=== PATIENT | male | born 1940 | race Caucasian/White ===

== ENCOUNTER 2021-08-07 14:23 | Inpatient (IN) | payer MEDICARE, OTHER ==
[~2021-08-07] VITALS: Ht 167.6 cm; Wt 58.5 kg
[2021-08-07 15:22] LABS: HEMATOCRIT 36.2 % (36.7-47.1); MEAN CORPUSCULAR HEMOGLOBIN 26.1 uug (23.8-33.4); MEAN CORPUSCULAR VOLUME 79.5 fL (73.0-96.2); PLATELET COUNT (AUTO) 152 K/uL (152-348)
[2021-08-07 15:35] LABS: CARBON DIOXIDE 26 mmol/L (21-32); CHLORIDE 105 mmol/L (98-107); CREATININE 2.5 mg/dL (0.6-1.3); GLUCOSE 107 mg/dL (74-106); POTASSIUM 4.1 mmol/L (3.5-5.1); UREA NITROGEN, BLOOD 44 mg/dL (7-18)
[2021-08-07 15:37] LABS: *BILIRUBIN,URIN 1+ (NEGATIVE); *BLOOD, URINE 3+ (NEGATIVE); *CLARITY,URINE CLOUDY (CLEAR); *COLOR,URINE YELLOW (YELLOW); *KETONES,URINE TRACE (NEGATIVE); *UROBILINOGEN,URINE 0.2 E.U./dl (NORMAL); LEUKOCYTE ESTERASE ,URINE 3+ (NEGATIVE); NITRITE, URINE POSITIVE (NEGATIVE); PH,URINE >=9.0 (5.0-8.0); UGLUCOSE NEGATIVE (NEGATIVE)
[2021-08-07] MEDS ORDERED: IV NORMAL SALINE 1000 ML BAG IV ONE (15:45)
[2021-08-07] MEDS ORDERED: PIPERACILLIN SODIUM/TAZOBACTAM 3.375 G in IV DEXTROSE 5% 50 ML IV ONE (15:45)
[2021-08-07] MEDS ORDERED: PIPERACILLIN/TAZOBACTAM/D5W 50 ML IV ONE (15:47)
[2021-08-07 15:48] LABS: ALANINE AMINOTRANSFERASE 19 U/L (16-63); ALKALINE PHOSPHATASE 72 U/L (50-136); ASPARTATE AMINOTRANSFERASE 13 U/L (15-37); BILIRUBIN,DIRECT 0.3 mg/dL (0.0-0.2); TOTAL PROTEIN, SERUM 6.6 g/dL (6.4-8.2)
[2021-08-07 15:51] LABS: BACTERIA,URINE MANY /HPF (NONE SEEN); RBC,URINE 50-80 /HPF (0-3); WBC,URINE TNTC /HPF (0-3)
[2021-08-07 15:52] LABS: TRIPLE PHOSPHATE CRYSTAL,UR MANY /HPF (NONE SEEN)
[2021-08-07 15:53] LABS: MUCUS,URINE MODERATE /LPF (0-FEW)
--- NOTE | 2021-08-07 16:36 | NUR ---
diane garcia talking to urologist over the phone regarding the ct scan results Addendum: 08/07/21 at [address] JURADO
[2021-08-07] MEDS ORDERED: ACETAMINOPHEN 650 MG SUPP.RECT RC ONE ×2 (16:53→17:00)
[2021-08-07] MEDS ORDERED: ONDANSETRON 4 MG/2 ML VIAL IV PRN (17:15)
[2021-08-07] MEDS ORDERED: Z GUARD REMEDY PASTE 57 GM TUBE TOP PRN (17:15)
[2021-08-07] MEDS ORDERED: IV NORMAL SALINE 500 ML BAG IV ONE (17:15)
--- NOTE | 2021-08-07 17:23 | NUR ---
PICC LINE WILL BE HERE AR 2000 PER LINE UP MACHINE OPERATOR.
--- NOTE | 2021-08-07 17:30 | NUR ---
PT'S SIGNED THE PICCLINE CONSENT.
[2021-08-07] MEDS ORDERED: PIPERACILLIN/TAZO 2.25 G in IV DEXTROSE 5% 50 ML IV SCH (18:00)
[2021-08-07] MEDS ORDERED: ONDANSETRON 4 MG/2 ML VIAL ONE (18:19)
--- NOTE | 2021-08-07 19:05 | NUR ---
Received report from RUFUS Kumar. Pt is enroute to OR for placement of kidney stent. VSS.
[2021-08-07] MEDS ORDERED: IOHEXOL 300MG/ML 50 ML VIAL ONE (19:07)
--- NOTE | 2021-08-07 19:08 | NUR ---
OR CREW TRANSFERED PT TO OR.
[2021-08-07] MEDS ORDERED: ROCURONIUM BROMIDE 50 MG/5 ML VIAL ONE (19:32)
--- NOTE | 2021-08-07 19:55 | NUR ---
PICC line nurse called and was told that pt is currently in surgery. PICC nurse said that he might push the picc line placement til the AM. I said is it possible to wait for a few hours and then come and insert the picc line. The picc nurse said he would call me in a few hours and let me know.
--- NOTE | 2021-08-07 20:14 | NUR ---
AFTER RECOVERY, PATIENT WAS DIRECTLY TRANSFER TO CCU BY RECOVERY ROOM NURSE.
[2021-08-07] MEDS ORDERED: NEOSTIGMINE METHYLSULFATE 10 MG/10 ML VIAL IM ONE (20:40)
[2021-08-07] MEDS ORDERED: GLYCOPYRROLATE 0.2 MG/ML VIAL IJ ONE (20:40)
[2021-08-07] MEDS ORDERED: LIDOCAINE-MPF 2% 5 ML VIAL IJ ONE (20:40)
[2021-08-07] MEDS ORDERED: ETOMIDATE 20 MG/10 ML VIAL IV ONE (20:40)
[2021-08-07] MEDS ORDERED: METOCLOPRAMIDE HCL 10 MG/2 ML VIAL IV ONE (20:40)
[2021-08-07] MEDS ORDERED: ONDANSETRON 4 MG/2 ML VIAL IV ONE (20:40)
[2021-08-07] MEDS ORDERED: SUCCINYLCHOLINE CHLORIDE 200 MG/10 ML VIAL IV ONE (20:40)
[2021-08-07] MEDS ORDERED: SEVOFLURANE 250 ML BOTTLE IH ONE (20:40)
[2021-08-07] MEDS ORDERED: DEXAMETHASONE SOD PHOSPHATE 4 MG INJ IV ONE (20:40)
[2021-08-07] MEDS ORDERED: DEXTROSE 5% IV ONE (20:45)
[2021-08-07] MEDS ORDERED: GENTAMICIN SULFATE IV ONE (20:45)
[2021-08-07] MEDS ORDERED: MEPERIDINE 25 MG/1 ML DISP.SYRIN ONE (20:53)
[2021-08-07] MEDS ORDERED: FENTANYL CITRATE 100 MCG/2 ML AMPUL ONE (21:12)
[2021-08-07] MEDS ORDERED: PIPERACILLIN SODIUM/TAZOBACTAM 4.5 G in IV DEXTROSE 5% 50 ML IV SCH (22:00)
[2021-08-07 22:15] VITALS: BP 84/45
--- NOTE | 2021-08-07 22:15 | NUR ---
gentamicin iv given in surgery per report from shaye from or
--- NOTE | 2021-08-07 22:15 | NUR ---
received patient and report from surekha in surgery , patient is lethargic , no spontaneous eye opening , contracted upper and lower extremities ,, on 6 l simple mask , patient has ns running at 75 ml , pacing at 93 , 97 oxygen saturation , temp 99.9 , bp 84 / 45 witt catheter is draining red orange , iiv 20 ga left and rightarm , familt at bedside , tylenol suppository given , belongings sent with the family ( home medications )
[2021-08-07 22:30] VITALS: BP 86/47
--- NOTE | 2021-08-07 23:00 | NUR ---
GENTAMICIN MEDICATION WAS TRIED TO ENTER IN THE SYSTEM , IT WOULDN'T LET US , SAYS PROHIBITED FROM THIS LOCATION , SCHOOL AGE LEAD TEACHER AND OUT SIDE PHARMAMCY WERE NOTOFIED OF THE PROBLEM , WAS TOLD TO WAIT FOR THE PHARMACIST AT 7AM AWARE
[2021-08-07] MEDS: ACETAMINOPHEN 650 MG SUPP.RECT RC PRN (23:18)
[2021-08-07] MEDS: IV NS 1000 ML 1,000 ML IV PRN (23:20)
--- NOTE | 2021-08-07 23:47 | NUR ---
DR HUGHES IS NOTIFIED OF TEMP > 101 , BLOOD PRESSURE WAS SUSUTAINING ON THE 80 "S AFTER PATIENT WAS RECEIVED FROM OR AND CURRENT TROPONIN RESULTS , NO ORDERS RECEIVED
[2021-08-08] VITALS (48 sets, daily range): BP systolic 83–155; BP diastolic 43–122
--- NOTE | 2021-08-08 | NUR ---
COOLING BLANKET IS APPLIED FOR COOLING MEASURES AND [employer] BPM ARCHITECT BATH IS DONE
[2021-08-08] MEDS ORDERED: PIPERACILLIN SODIUM/TAZO 3.375 GM VIAL ONE (01:17)
[2021-08-08] MEDS ORDERED: PIPERACILLIN SODIUM/TAZOBACTAM 3.375 G in IV DEXTROSE 5% 100 ML IV SCH (02:00)
--- NOTE | 2021-08-08 03:30 | NUR ---
maikol duran , was called to notify of low blood pressure
--- NOTE | 2021-08-08 03:39 | NUR ---
maikol duran called back and notified of current status of the patient , received order to start levophed
[2021-08-08] MEDS ORDERED: NOREPINEPHRINE BITARTRATE 8 MG in IV NORMAL SALINE 242 ML IV PRN (03:45)
[2021-08-08] MEDS ORDERED: NOREPINEPHRINE BITARTRATE 4 MG/4 ML VIAL IV ONE (03:56)
--- NOTE | 2021-08-08 04:10 | NUR ---
levophed started 0.1 mcg
[2021-08-08 05:13] LABS: HEMATOCRIT 31.5 % (36.7-47.1); MEAN CORPUSCULAR HEMOGLOBIN 26.1 uug (23.8-33.4); MEAN CORPUSCULAR VOLUME 79.7 fL (73.0-96.2); PLATELET COUNT (AUTO) 86 K/uL (152-348)
[2021-08-08 05:24] LABS: ALANINE AMINOTRANSFERASE 20 U/L (16-63); ALKALINE PHOSPHATASE 68 U/L (50-136); ASPARTATE AMINOTRANSFERASE 24 U/L (15-37); BILIRUBIN,TOTAL 1.2 mg/dL (0.2-1.0); CARBON DIOXIDE 21 mmol/L (21-32); CHLORIDE 110 mmol/L (98-107); CREATININE 2.6 mg/dL (0.6-1.3); GLUCOSE 71 mg/dL (74-106); MAGNESIUM 2.1 mg/dL (1.8-2.4); PHOSPHOROUS 3.1 mg/dL (2.5-4.9); POTASSIUM 3.6 mmol/L (3.5-5.1); TOTAL PROTEIN, SERUM 5.5 g/dL (6.4-8.2); UREA NITROGEN, BLOOD 51 mg/dL (7-18)
[2021-08-08 06:01] LABS: BAND % (MANUAL) 29 % (0-10); LYMPHOCYTES % (MANUAL) 1 % (20-40); METAMYELOCYTES % 4 % (0-1); MONOCYTES % (MANUAL) 4 % (2-10); NEUTROPHILS % (MANUAL) 62 % (42-75)
[2021-08-08] MEDS: IV NS 1000 ML 1,000 ML IV PRN ×2 (06:27→21:40)
--- NOTE | 2021-08-08 06:55 | NUR ---
patient is getting more awake , combative ,moving bilateral hands and pulling oxygen and ivs,
[2021-08-08] MEDS ORDERED: GENTAMICIN SULFATE INJ 80 MG in IV DEXTROSE 5% 50 ML IV SCH (08:00)
[2021-08-08] MEDS ORDERED: VANCOMYCIN IV 750 MG in IV DEXTROSE 5% 250 ML IV SCH (09:00)
[2021-08-08] MEDS ORDERED: PIPERACILLIN/TAZO 2.25 G in IV DEXTROSE 5% 50 ML IV SCH (10:00)
[2021-08-08] MEDS ORDERED: ALBUTEROL SULFATE 2.5 MG/3 ML NEBU NEB PRN (10:15)
[2021-08-08] MEDS: Z GUARD REMEDY PASTE 57 GM TUBE TOP SCH ×2 (11:18→20:45)
[2021-08-08] MEDS ORDERED: MEROPENEM 500 MG in IV NORMAL SALINE 50 ML IV ONE (12:00)
--- NOTE | 2021-08-08 17:01 | NUR ---
Spoke to Dr. Ricci regarding blood cultures growing gram negative rods in all 4 bottles. iNna CANDELARIA made changes to IV antibiotics. order one more set of blood cultures now. Addendum: 08/08/21 at 1709 by MELCHOR PERALTA RN Dr. Garcaí
[2021-08-08] MEDS ORDERED: PANT40TA2 PO (19:42)
[2021-08-08] MEDS ORDERED: FAMO20TA8 PO (19:43)
[2021-08-08] MEDS ORDERED: DONE10TA44 PO (19:44)
[2021-08-08] MEDS ORDERED: ATOR40TA PO (19:45)
--- NOTE | 2021-08-08 20:00 | NUR ---
Family visiting. Plan of care discussed with patient's and son Curt. Both requesting to talk to MD. Advised that I will leave a note for MDs to talk to them in am. Brian Mckay MATERIALS DIRECTOR here; midline insertion order received. Chain Saw Mechanic Irais made aware.
--- NOTE | 2021-08-08 20:15 | NUR ---
Pharmacy Neda called re: patient's home meds. As per she will bring med list in am.
--- NOTE | 2021-08-08 21:00 | NUR ---
ANNY midline successfully inserted by Roberto ARRINGTON
[2021-08-09] VITALS (25 sets, daily range): BP systolic 89–146; BP diastolic 47–94
[2021-08-09] MEDS ORDERED: MEROPENEM 500 MG in IV NORMAL SALINE 50 ML IV SCH
--- NOTE | 2021-08-09 | NUR ---
Bath given; patient gets moderately agitated with care, holding mittens up as a boxer and tries to hit RN. Reoriented and advised appropriately. Still non verbal.
[2021-08-09 05:34] LABS: HEMATOCRIT 31.8 % (36.7-47.1); MEAN CORPUSCULAR HEMOGLOBIN 25.7 uug (23.8-33.4); MEAN CORPUSCULAR VOLUME 78.8 fL (73.0-96.2); PLATELET COUNT (AUTO) 55 K/uL (152-348)
[2021-08-09 05:41] LABS: CARBON DIOXIDE 22 mmol/L (21-32); CHLORIDE 113 mmol/L (98-107); CREATININE 1.7 mg/dL (0.6-1.3); GLUCOSE 70 mg/dL (74-106); POTASSIUM 4.2 mmol/L (3.5-5.1); UREA NITROGEN, BLOOD 51 mg/dL (7-18)
[2021-08-09 05:43] LABS: MAGNESIUM 2.4 mg/dL (1.8-2.4); PHOSPHOROUS 3.8 mg/dL (2.5-4.9)
--- NOTE | 2021-08-09 06:33 | NUR ---
VS stable all night; no acute distress. Output 600 ml pinkish to tea colored urine with sediments.
--- NOTE | 2021-08-09 08:00 | NUR ---
received change of shift report on pt. pt on 2L NC saturating at 100%, no signs of distress, no signs of pain, pt NPO at this time. nonverbal at baseline, NSR with PAC, voiding via witt, brought pt home medications, logged and dropped off at pharmacy. .
[2021-08-09] MEDS: Z GUARD REMEDY PASTE 57 GM TUBE TOP SCH ×2 (08:58→22:10)
[2021-08-09] MEDS: IV NS 1000 ML 1,000 ML IV PRN ×3 (10:36→23:36)
[2021-08-09] MEDS: ACETAMINOPHEN 650 MG SUPP.RECT RC PRN ×2 (10:39→22:11)
[2021-08-09] MEDS ORDERED: MEROPENEM 1 G in IV NORMAL SALINE 100 ML IV SCH (10:45)
[2021-08-09 11:00] LABS: ABG BASE EXCESS -4.5 mmol/L; ABG HCO3 18.4 mmol/L; ABG PCO2 27.1 mmHg (35.0-45.0); ABG PO2 80.2 mmHg (75.0-100.0); ABG SITE LEFT RADIAL; ABG TOTAL HEMOGLOBIN 10.7 G/dL (13.5-18.0); COHb 0.1 % (0.5-1.5); MetHb 0.3 % (0.0-1.5); O2Hb 95.6 % (94.0-97.0); VENT MODE Nasal Cannula
[2021-08-09] MEDS: MEROPENEM 1 G in IV NORMAL SALINE 100 ML IV SCH ×2 (11:14→23:34)
--- NOTE | 2021-08-09 13:00 | NUR ---
NG tube placed, will follow up with xray
--- NOTE | 2021-08-09 13:32 | NUR ---
pt seen by Dr. Condon, orders for NG tube placement. pt is drowsy and not alert enough to swallow.
--- NOTE | 2021-08-09 16:00 | NUR ---
Jevity 1.2 to start at 10ml for a goal rate of 55ml/hr x22hr. Pt on room air saturating at 100%, no signs of distress, no reports of pain.
[2021-08-09] MEDS ORDERED: PHENOL/SODIUM PHENOLATE SPRAY 177 ML BOTTLE MM PRN (17:30)
[2021-08-09] MEDS ORDERED: POLYVINYL ALCOHOL OPHT DROPS 15 ML BOTTLE LEFTEYE PRN (18:00)
[2021-08-09] MEDS: ACETAMINOPHEN 325 MG TABLET PO PRN (18:06)
--- NOTE | 2021-08-09 19:10 | NUR ---
received [facility] , on room air , ngt jevity 1.2 at 10 ml ,placement checeked and verified and no residual noted , pacing , at 82 , witt draining orange straw color , temp of 100 . 3 and iv intact ns 75 ml ,
--- NOTE | 2021-08-09 22:44 | NUR ---
dr garcia informed of changed of condition , heart rate is sustaining to > 140 "s
[2021-08-09] MEDS ORDERED: AMIODARONE HCL IV 150 MG in IV DEXTROSE 5% 100 ML IV ONE (22:45)
--- NOTE | 2021-08-09 22:46 | NUR ---
patient converted to afib with rvr, received order to start amiodarone
[2021-08-09] MEDS ORDERED: AMIODARONE HCL 150 MG/3 ML VIAL IV ONE ×3 (23:06→23:13)
[2021-08-09] MEDS: AMIODARONE HCL IV 450 MG in IV DEXTROSE 5% 250 ML IV PRN (23:24)
[2021-08-10] VITALS (23 sets, daily range): BP systolic 116–163; BP diastolic 50–86
[2021-08-10] MEDS ORDERED: AMIODARONE HCL 150 MG/3 ML VIAL IV ONE (05:00)
[2021-08-10 05:33] LABS: HEMATOCRIT 30.9 % (36.7-47.1); MEAN CORPUSCULAR HEMOGLOBIN 25.7 uug (23.8-33.4); MEAN CORPUSCULAR VOLUME 79.8 fL (73.0-96.2); PLATELET COUNT (AUTO) 64 K/uL (152-348)
[2021-08-10 05:47] LABS: CARBON DIOXIDE 24 mmol/L (21-32); CHLORIDE 115 mmol/L (98-107); CREATININE 1.6 mg/dL (0.6-1.3); GLUCOSE 126 mg/dL (74-106); MAGNESIUM 2.3 mg/dL (1.8-2.4); PHOSPHOROUS 2.7 mg/dL (2.5-4.9); POTASSIUM 3.8 mmol/L (3.5-5.1); UREA NITROGEN, BLOOD 47 mg/dL (7-18)
[2021-08-10] MEDS: AMIODARONE HCL IV 450 MG in IV DEXTROSE 5% 250 ML IV PRN (06:04)
--- NOTE | 2021-08-10 07:00 | NUR ---
dr basurto is here at bedside
[2021-08-10] MEDS: Z GUARD REMEDY PASTE 57 GM TUBE TOP SCH ×2 (08:41→20:06)
--- NOTE | 2021-08-10 10:14 | NUR ---
patient had swallow eval done this morning per dr. garcia's order. patient did not pass. familly insists on feeding even with high risk. therapist informed primary doctor and force adjustment supervisor and informed the family that he will aspirate if he gets anything orally. speech therapist will reevaluate
[2021-08-10] MEDS: MEROPENEM 1 G in IV NORMAL SALINE 100 ML IV SCH (11:34)
[2021-08-10] MEDS ORDERED: CEFTRIAXONE 2 G VIAL IM SCH (12:45)
[2021-08-10] MEDS: ACETAMINOPHEN 325 MG TABLET PO PRN ×2 (14:52→19:58)
[2021-08-10] MEDS: CEFTRIAXONE 2 G in IV DEXTROSE 5% 100 ML IV SCH (17:29)
--- NOTE | 2021-08-10 19:30 | NUR ---
Report received. Patient lethargic, easily agitated when stimulated. Mumbles, no appropriate verbal responses to questions. Extremities rigid. NAD noted. clinical research monitor: SR with PACs. On continuous Amiodarone drip per protocol. Assessment done; see flow complete data. Addendum: 08/11/21 at 0400 by AMADOU MEDELLIN RN Amended: Links added. Addendum: 08/11/21 at 0404 by AMADOU MEDELLIN RN Amended: Links added.
--- NOTE | 2021-08-10 20:00 | NUR ---
Incontinent of soft brown stools. Cleaned; skin care provided. With Mepilex to both hips and sacral area for protection. No skin breakdown. Hydrogel and Z guard ointment applied. Turned and repositioned. HOB elevated above 30 degrees. Family visits; plan of care discussed. Addendum: 08/11/21 at 0404 by AMADOU MEDELLIN RN Amended: Links added.
[2021-08-11] VITALS (17 sets, daily range): BP systolic 101–167; BP diastolic 59–87
[2021-08-11] MEDS: ACETAMINOPHEN 325 MG TABLET PO PRN ×3 (03:24→17:40)
[2021-08-11 06:13] LABS: HEMATOCRIT 30.7 % (36.7-47.1); MEAN CORPUSCULAR HEMOGLOBIN 26.4 uug (23.8-33.4); MEAN CORPUSCULAR VOLUME 78.7 fL (73.0-96.2); PLATELET COUNT (AUTO) 51 K/uL (152-348)
[2021-08-11 06:14] LABS: CARBON DIOXIDE 25 mmol/L (21-32); CHLORIDE 112 mmol/L (98-107); CREATININE 1.4 mg/dL (0.6-1.3); GLUCOSE 161 mg/dL (74-106); MAGNESIUM 1.8 mg/dL (1.8-2.4); PHOSPHOROUS 2.2 mg/dL (2.5-4.9); POTASSIUM 3.2 mmol/L (3.5-5.1); UREA NITROGEN, BLOOD 35 mg/dL (7-18)
--- NOTE | 2021-08-11 06:51 | NUR ---
Stable all night. EKG: monitor SR with PACs. Tolerating NGT feedings well at 55 ml/H. Still mumbles, no appropriate verbal responses. Doesn't follow commands. Urine output 700 ml x 12H; coty, cloudy. No hematuria. Addendum: 08/11/21 at 0658 by AMADOU MEDELLIN RN Amended: Links added.
[2021-08-11] MEDS: Z GUARD REMEDY PASTE 57 GM TUBE TOP SCH ×2 (08:07→21:55)
[2021-08-11] MEDS: AMIODARONE HCL 200 MG TABLET PO SCH ×2 (08:07→21:54)
[2021-08-11] MEDS ORDERED: POTASSIUM CHLORIDE 20 MEQ POWDER PACKET GT ONE (09:15)
[2021-08-11] MEDS ORDERED: NEUTRA PHOS PACKET GT ONE (15:15)
[2021-08-11] MEDS ORDERED: IV D5W 1000ML 1,000 ML IV ONE (15:45)
--- NOTE | 2021-08-11 15:50 | NUR ---
report given to Jillian. patient to transfer to room 307. family (son) at bedside informed and no patient belongings to be transferred. Dr Dean ordered sodium phos ngt given prior to transfer and started d5w at 50ml/hr as ordered. Dr. dean will dc kphos IV.
--- NOTE | 2021-08-11 16:15 | NUR ---
received from cc per bed, lethargic, doesn't verbally responds, just moans at times and moves right upper extremity, left arm flaccid, bilateral mittens on, head of bed elevated, NGT on right nares- tube fdg Jevity 1.2 infusing at 55ml/hr, no residual noted, on room air, sat at 96% tele SR 70's, son at bedside
[2021-08-11] MEDS ORDERED: POTASSIUM PHOSPHATE MM 15 MMOL in IV NORMAL SALINE 250 ML IV ONE (17:00)
--- NOTE | 2021-08-11 17:40 | NUR ---
temp-100 Tylenol 650mg via ngt given, cooling measures done, oral care done, family at bedside
[2021-08-11] MEDS: CEFTRIAXONE 2 G in IV DEXTROSE 5% 100 ML IV SCH (17:41)
--- NOTE | 2021-08-11 18:50 | NUR ---
temp rechecked 98.5, repositioned for comfort, all needs attended and met
--- NOTE | 2021-08-11 19:54 | NUR ---
patient received with untied mittens to the right hand/with family at bedside.head of bed elevated 45 degrees.
--- NOTE | 2021-08-11 20:07 | NUR ---
lab called for the blood culture gram stain positive for gram negative rods. will inform physician Addendum: 08/11/21 at 2015 by [facility]RY [facility] RN2 RN Dr Roseanna fountain for the critical result with rr 30/ afebrile. message left ,awaiting response
--- NOTE | 2021-08-11 20:41 | NUR ---
Dr Condon called and informed about the critical result and patient tachypneic with rr of 30/min. with orders and carried out
--- NOTE | 2021-08-11 22:51 | NUR ---
Dr Roseanna fountain as the chest xray and abg result in. message ;left awaiting response Addendum: 08/11/21 at 2253 by [facility]RY [facility] RN2 RN Dr Martinez called back with no new orders given.
[2021-08-12] VITALS (8 sets, daily range): BP systolic 131–177; BP diastolic 62–81
--- NOTE | 2021-08-12 01:07 | NUR ---
rr 36/min. Dr Condon is aware.asked in patient can be given anything for pain .with no further orders made
--- NOTE | 2021-08-12 03:09 | NUR ---
patient of right hand untied mitshans as he is unable to follow instructions and with possibility to pull on the ngt and line.
[2021-08-12] MEDS: JEVITY 1.2 1000 ML LIQUID GT PRN ×2 (03:59→23:38)
[2021-08-12 06:38] LABS: CREATININE 1.1 mg/dL (0.6-1.3); PHOSPHOROUS 3.2 mg/dL (2.5-4.9); POTASSIUM 3.6 mmol/L (3.5-5.1)
[2021-08-12 08:16] LABS: ABG BASE EXCESS -0.3 mmol/L; ABG HCO3 21.3 mmol/L; ABG PCO2 25.6 mmHg (35.0-45.0); ABG PH 7.537 (7.350-7.450); ABG PO2 84.2 mmHg (75.0-100.0); ABG SITE RIGHT RADIAL; ABG TOTAL HEMOGLOBIN 10.9 G/dL (13.5-18.0); COHb 0.2 % (0.5-1.5); MetHb 0.2 % (0.0-1.5); O2Hb 96.3 % (94.0-97.0); VENT MODE ROOM AIR
[2021-08-12] MEDS: AMIODARONE HCL 200 MG TABLET PO SCH ×2 (08:22→21:08)
[2021-08-12] MEDS: Z GUARD REMEDY PASTE 57 GM TUBE TOP SCH ×2 (08:23→21:07)
--- NOTE | 2021-08-12 08:30 | NUR ---
received in bed sleeping but arousable. non verbal. ngt on right nare intact and patent no n/v noted. abd non distended. pt briefly opens his eyes when called his name. iv madelin midline intact hydration ongoing. witt draining yellow urine no hematuria/sediments. sr on tele hr 80s. still tachypneic rr 26 o2 sat 94-95%. dr. dietz rounding at this time and aware. safety measures on. cont to monitor.
--- NOTE | 2021-08-12 09:20 | NUR ---
see and examined by dr. garcia and update given. at bedside.
[2021-08-12] MEDS: ACETAMINOPHEN 325 MG TABLET PO PRN (09:27)
[2021-08-12] MEDS: CEFTRIAXONE 2 G in IV DEXTROSE 5% 100 ML IV SCH (17:19)
--- NOTE | 2021-08-12 18:40 | NUR ---
awake and responsive. no acute distress. afebrile. still tachypneic rr 28. dr. garcia aware. o2 sat 97%. ngt tolerated no n/v/d noted. sr on tele hr 80s. iv intact. on iv rocephin no adverse/allergic rxn noted. safety precautions in place. needs attended to. call light in reach. family at bedside. kept comfortable.
--- NOTE | 2021-08-12 20:17 | NUR ---
Received with at bedside talking to the patient who is responding by gestures. no signs of distress but still tachypneic with rr 36/min but no shortness of breath , Dr Condon is aware. head of bed elevatd 35 degrees.
--- NOTE | 2021-08-12 21:13 | NUR ---
went home .untied mittens right hand reapplied as the patient is quite but is unable to follow instructions and will have the danger of pulling the ngt, for feeding
--- NOTE | 2021-08-12 22:14 | NUR ---
Doctor Woody the physician radiation / chemistry technician informed that the patient is always tachypneic and moans when moved. asked if he can be given something for pain as he is always uncomfortable and grimacing ,with orders and carried out. witt catheter noted to be leaking and informed and with ordes okay to remove the witt catheter and reinsert a new one. the untied mitten to the right hand is applied foir safety and with orders okay to renew the order.
[2021-08-12] MEDS ORDERED: HYDROCODONE/APAP 5-325MG TABLET PO ONE (22:15)
--- NOTE | 2021-08-12 23:19 | NUR ---
will continue to monitor for pain. norco dose held as further observation .
[2021-08-13] VITALS (7 sets, daily range): BP systolic 100–147; BP diastolic 53–81
--- NOTE | 2021-08-13 00:23 | NUR ---
witt catheter discontinued as noted leaking . witt catheter sammarinese 16 inserted but leaking ,sammarinese 18 witt catheter inserted aseptically and not urine with sediments, no further leaking noted, norco 5 mg via ngt given as patient grimacing and moaning when moved and touched, placed on oxygen at 2 liters as saturation to 92 on room air,monitored closely
--- NOTE | 2021-08-13 01:20 | NUR ---
Dr Storm called and okayed for the patient to placed on oxygen at 2 liters nasal cannula. and witt catheter macedonian 18 was inserted as the macedonian 16 still was leakinh
--- NOTE | 2021-08-13 02:42 | NUR ---
suctioning of secretions done obtained cream colored thick secretions, head of bed elevated 45 degrees.
[2021-08-13 06:37] LABS: HEMATOCRIT 30.3 % (36.7-47.1); MEAN CORPUSCULAR VOLUME 78.8 fL (73.0-96.2); PLATELET COUNT (AUTO) 72 K/uL (152-348)
[2021-08-13 06:46] LABS: BILIRUBIN,TOTAL 0.5 mg/dL (0.2-1.0); CREATININE 1.2 mg/dL (0.6-1.3); MAGNESIUM 1.6 mg/dL (1.8-2.4); PHOSPHOROUS 4.2 mg/dL (2.5-4.9); TOTAL PROTEIN, SERUM 5.5 g/dL (6.4-8.2)
--- NOTE | 2021-08-13 08:19 | NUR ---
received resting but easily arousable. makes garbled sounds. no sob/ facial grimacing noted. hob elevated 45 degress. ngt feeding on as ordered. madelin iv intact and patent. with right hand mitten d/t risk of pulling out lines. pt unable to follow instructions. still tachypneic rr 30, o2 sat 97%. fc draining yellow urine no hematuria or sediments noted. safety measures kept. call light in reach. will monitor.
--- NOTE | 2021-08-13 08:52 | NUR ---
sr on tele hr 87. dr. garcia and speech therapist for [facility] are in the room with family.
--- NOTE | 2021-08-13 09:09 | NUR ---
dr. garcia with order to remove ngt noted and carried. speech therapist in the room with family.
[2021-08-13] MEDS: AMIODARONE HCL 200 MG TABLET PO SCH ×2 (09:12→20:45)
[2021-08-13] MEDS: Z GUARD REMEDY PASTE 57 GM TUBE TOP SCH ×2 (09:12→20:45)
--- NOTE | 2021-08-13 09:18 | NUR ---
ngt removed as ordered intact. pt tolerated procedure minimal facial grimacing. alert and responsive, tolerating apple sauce fed by speech therapist and . no coughing noted. hob kept elevated. will monitor.
[2021-08-13] MEDS: MAGNESIUM SULFATE/D5W 100 ML IV SCH ×2 (09:44→10:54)
[2021-08-13] MEDS ORDERED: CARB1TAB40 PO (12:14)
[2021-08-13] MEDS ORDERED: MEMA10TA PO (12:14)
[2021-08-13] MEDS ORDERED: CARB1TAB21 PO (12:14)
--- NOTE | 2021-08-13 12:24 | NUR ---
home meds brought by family entered in system and endorsed to [facility] at pharmacy. aware.
[2021-08-13] MEDS: CEFTRIAXONE 2 G in IV DEXTROSE 5% 100 ML IV SCH (17:39)
--- NOTE | 2021-08-13 18:43 | NUR ---
pt resting no acute distress. hob kept elevated. ate more during dinner. strict aspiration precautions observed at all times. no facial grimacing or sob. changed and repositioned prn. kept comfortable. safety precautions maintained. family at bedside.
[2021-08-14 04:00] VITALS: BP 124/58
[2021-08-14 06:37] LABS: CREATININE 1.1 mg/dL (0.6-1.3); MAGNESIUM 2.2 mg/dL (1.8-2.4); POTASSIUM 3.9 mmol/L (3.5-5.1)
[2021-08-14 09:53] LABS: THYROID STIMULATING HORMONE 4.128 mIU/mL (0.358-3.740)
[2021-08-14] MEDS: AMIODARONE HCL 200 MG TABLET PO SCH ×2 (09:54→20:45)
[2021-08-14] MEDS: Z GUARD REMEDY PASTE 57 GM TUBE TOP SCH ×2 (09:54→22:25)
[2021-08-14] MEDS: CARBIDOPA/LEVODOPA CR 50-200MG TABLET.SA PO SCH (10:32)
[2021-08-14 12:02] VITALS: BP 119/65
[2021-08-14] MEDS: CARBIDOPA/LEVODOPA 25-100MG TABLET PO SCH ×3 (12:18→20:46)
[2021-08-14 15:41] LABS: *BILIRUBIN,URIN NEGATIVE (NEGATIVE); *BLOOD, URINE 3+ (NEGATIVE); *CLARITY,URINE SLIGHTLY CLOUDY (CLEAR); *COLOR,URINE YELLOW (YELLOW); *KETONES,URINE NEGATIVE (NEGATIVE); *UROBILINOGEN,URINE 0.2 E.U./dl (NORMAL); LEUKOCYTE ESTERASE ,URINE 2+ (NEGATIVE); NITRITE, URINE NEGATIVE (NEGATIVE); PH,URINE 7.5 (5.0-8.0); UGLUCOSE NEGATIVE (NEGATIVE)
[2021-08-14 16:03] VITALS: BP 132/68
[2021-08-14] MEDS: MEMANTINE HCL 10 MG TABLET PO SCH (17:24)
[2021-08-14] MEDS: CEFTRIAXONE 2 G in IV DEXTROSE 5% 100 ML IV SCH (18:17)
[2021-08-14 18:22] LABS: RBC,URINE TNTC /HPF (0-3); WBC,URINE TNTC /HPF (0-3)
[2021-08-14 18:23] LABS: BACTERIA,URINE FEW /HPF (NONE SEEN)
--- NOTE | 2021-08-14 19:55 | NUR ---
Received patient in bed resting awake, makes garbled sounds.Hob elevated 45 degrees. No s/s of distress noted.O2 at 2LPM via NC sating well.Aspiration precaution observed at all times.Midline on right upper arm patent and intact. F/c draining yellow urine no hematuria or sediments noted. at bedside.Safety measures kept. call light in reach.Will monitor.VSS
[2021-08-14 20:00] VITALS: BP_SYST 102; BP_SYST 106; BP_DIAS 54; BP_DIAS 60
[2021-08-14] MEDS ORDERED: ATORVASTATIN 40 MG TABLET PO SCH (21:00)
[2021-08-14] MEDS ORDERED: DONEPEZIL 10 MG TABLET PO SCH ×2 (21:00)
[2021-08-15 04:00] VITALS: BP 122/64
[2021-08-15] MEDS ORDERED: CARBIDOPA/LEVODOPA 25-100MG TABLET ONE (06:06)
[2021-08-15] MEDS: CARBIDOPA/LEVODOPA 25-100MG TABLET PO SCH ×3 (06:11→16:58)
[2021-08-15 06:40] LABS: HEMATOCRIT 28.1 % (36.7-47.1); MEAN CORPUSCULAR HEMOGLOBIN 26.1 uug (23.8-33.4); MEAN CORPUSCULAR VOLUME 79.2 fL (73.0-96.2); PLATELET COUNT (AUTO) 186 K/uL (152-348)
[2021-08-15] MEDS ORDERED: PANTOPRAZOLE SODIUM 40 MG TABLET.DR PO SCH (07:00)
[2021-08-15 07:51] LABS: BILIRUBIN,TOTAL 0.6 mg/dL (0.2-1.0); CREATININE 1.2 mg/dL (0.6-1.3); MAGNESIUM 2.1 mg/dL (1.8-2.4); TOTAL PROTEIN, SERUM 5.7 g/dL (6.4-8.2)
[2021-08-15 08:00] VITALS: BP 111/68
[2021-08-15] MEDS: MEMANTINE HCL 10 MG TABLET PO SCH ×2 (09:35→16:57)
[2021-08-15] MEDS: CARBIDOPA/LEVODOPA CR 50-200MG TABLET.SA PO SCH (09:35)
[2021-08-15] MEDS: AMIODARONE HCL 200 MG TABLET PO SCH (09:35)
[2021-08-15] MEDS: Z GUARD REMEDY PASTE 57 GM TUBE TOP SCH (09:36)
[2021-08-15] MEDS ORDERED: APIXABAN 2.5 MG TABLET PO SCH (10:15)
[2021-08-15] MEDS ORDERED: BISACODYL 10 MG SUPP.RECT RC PRN (10:30)
[2021-08-15 11:14] VITALS: BP 113/57
[2021-08-15] MEDS ORDERED: CEFT2VIA14 IV (11:26)
[2021-08-15] MEDS ORDERED: AMIO200T6 PO (11:26)
[2021-08-15] MEDS ORDERED: APIX2.5T PO (11:26)
[2021-08-15 15:50] VITALS: BP 114/69
[2021-08-15] MEDS: CEFTRIAXONE 2 G in IV DEXTROSE 5% 100 ML IV SCH (17:03)
--- NOTE | 2021-08-15 18:02 | NUR ---
PATIENT REMAINED STABLE DURING THE SHIFT. DC INSTRUCTIONS GIVEN AND SIGNED BY THE . BELONGING LIST SIGNED. MEDICATION RETURNED. SKIN INTACT. ALL NEEDS ATTENDED. ASPIRATION PRECAUTION MAINTAINED. NO DISTRESS IDENTIFIED. SAFETY PRECAUTION MAINTAINED. MIDLINE INTACT AND INFUSING WELL.
--- NOTE | 2021-08-15 18:19 | NUR ---
CALLED [facility] TO INFORM THAT RX WAS SENT TO [facility]. PER KAREN FROM [facility] STATED THEY WILL CONTACT [facility] TO GET THE RX TO BE TRANSFERRED TO THEM. WILL ENDORSE TO THE NEXT SHIFT.
--- NOTE | 2021-08-15 18:48 | NUR ---
DISCHARGED PATIENT VIA AMBULANCE WITH 2 first assist. IS AT BEDSIDE. INSISTED TO REMOVE BUCIO CATH, PATIENT TOLERATED IT WELL WITH CLEAR YELLOW URINE OUTPUT. PATIENT HAS NO SIGNS OF ANY DISTRESS. NO PAIN IDENTIFIED. SKIN INTACT.
== END 2021-08-15 19:00 | disposition home health service (06) | DRG 853 ==
LOC: ER 14:23 → TRANSITION 17:23 → CCU 20:07 → TELE3 08-11 16:25 → MEDSURG3 08-13 10:30
PROVIDERS: ADMIT Internal Medicine; ATTEND Internal Medicine
PROC: 0T778DZ Dilation of Left Ureter with Intraluminal Device, Via Natural or Artificial Opening Endoscopic (ICD-10-PCS; principal; 2021-08-07)
PROC: 05H933Z Insertion of Infusion Device into Right Brachial Vein, Percutaneous Approach (ICD-10-PCS; 2021-08-08)
DX: A41.59 Other Gram-negative sepsis (principal); J96.01 Acute respiratory failure with hypoxia; G93.41 Metabolic encephalopathy; J69.0 Pneumonitis due to inhalation of food and vomit; R65.21 Severe sepsis with septic shock; E43 Unspecified severe protein-calorie malnutrition; N17.9 Acute kidney failure, unspecified; E87.0 Hyperosmolality and hypernatremia; N20.1 Calculus of ureter; I51.81 Takotsubo syndrome; N13.6 Pyonephrosis; D64.9 Anemia, unspecified; D69.6 Thrombocytopenia, unspecified; E27.8 Other specified disorders of adrenal gland; F02.80 Dementia in other diseases classified elsewhere, unspecified severity, without behavioral disturbance, psychotic disturbance, mood disturbance, and anxiety; G20 Parkinson's disease; I25.10 Atherosclerotic heart disease of native coronary artery without angina pectoris; I48.0 Paroxysmal atrial fibrillation; I67.2 Cerebral atherosclerosis; I70.8 Atherosclerosis of other arteries; K44.9 Diaphragmatic hernia without obstruction or gangrene; K57.90 Diverticulosis of intestine, part unspecified, without perforation or abscess without bleeding; Z86.73 Personal history of transient ischemic attack (TIA), and cerebral infarction without residual deficits; N28.1 Cyst of kidney, acquired; I11.0 Hypertensive heart disease with heart failure; Z85.46 Personal history of malignant neoplasm of prostate; Z95.0 Presence of cardiac pacemaker; Z96.642 Presence of left artificial hip joint; Z99.3 Dependence on wheelchair; Z20.822 Contact with and (suspected) exposure to COVID-19; B96.4 Proteus (mirabilis) (morganii) as the cause of diseases classified elsewhere; I25.5 Ischemic cardiomyopathy
CPT/HCPCS: 36415; 36600; 70030-TC; 70450; 71045; 74018; 83605; 83735; 84100; 84443; 85025; 85730; 86803; 86850; 86900; 86901; 87040; 87077; 87086; 87806; 93005; 93307; A4663; A6209; C1713; C1758; G0378; J0282; J0330; J0696; J1100; J1580; J2175; J2185; J2405; J2543; J2765; J3010; J3370; J3475; J3490; J7030; J7050; J7060; J7070; Q9967